=== PATIENT | female | born 1970 | race Hispanic/Latino ===

== ENCOUNTER 2020-09-02 19:34 | Emergency (ER) | payer OTHER ==
[~2020-09-02] VITALS: Ht 152.4 cm; Wt 81.6 kg
[2020-09-02] MEDS ORDERED: KETOROLAC TROMETHAMINE 30 MG/ML VIAL ONE (20:12)
[2020-09-02] MEDS ORDERED: DIAZEPAM 2 MG TAB ONE (20:13)
[2020-09-02] MEDS ORDERED: KETOROLAC TROMETHAMINE 60 MG/2 ML VIAL IM ONE (20:15)
[2020-09-02] MEDS ORDERED: DIAZEPAM 2 MG TAB PO ONE (20:15)
[2020-09-02] MEDS ORDERED: CYCLOBENZAPRINE5 MG PO (22:27)
== END 2020-09-02 22:35 | disposition home or self-care (01) ==
LOC: ER 20:11
DX: M54.2 Cervicalgia (principal); M62.830 Muscle spasm of back; R51.9 Headache, unspecified; V43.52XA Car driver injured in collision with other type car in traffic accident, initial encounter; Y92.488 Other paved roadways as the place of occurrence of the external cause
CPT/HCPCS: 70450; 71046; 72110; 72125; 99283; J1885